=== PATIENT | male | born 1990 | race Caucasian/White ===

== ENCOUNTER 2024-05-16 08:36 | Emergency (ER) | payer OTHER, SELFPAY ==
--- NOTE | 2024-05-16 08:52 | ED.GENMED ---
History of Present Illness
General
Chief Complaint: Insect Sting
Source: patient
Exam Limitations: none
Time Seen by Provider: 05/16/24 08:47
Nursing documentation reviewed up to this point in time: agreed with
History of Present Illness
History of Present Illness:
34 yo male with no clinically significant PMHX presents shaky and tachypneic 20 minutes after stepping onto a hornets nest at [facility]. He's been stung numerous times on ankles, legs, head, ears, neck and right arm. Denies swelling of tongue or throat,
denies trouble breathing, denies chest pain, denies n/v/abd pain. May symptoms is pain and tight feeling in left ankle/calf where most of the stings are.
Past History
Past History
ED Past Medical History: Other (Former substance abuse)
ED Past Surgical History: None
Social History
Alcohol: Occasional
Drug: Former user (heroine)
Personal: Single
Living: with family
Employment: Employed ([employer])
Review of Systems
Review of Systems
Allergies reviewed?: Yes
All Other Systems: ROS reviewed and negative except as documented in HPI and ROS
EENT: Denies sore throat or mouth swelling
Respiratory: Denies trouble breathing
Cardiac: Denies chest pain
ABD/GI: Denies abdominal pain or nausea
Musculoskeletal: Reports no symptoms
Skin: Reports other (Numerous stings)
Neurological: Reports no symptoms
Phy Exam
Physical Exam
Physical Exam:
GENERAL: No acute distress. A&Ox3.
CONSTITUTIONAL: Afebrile.
EYES: clear, conjunctivae normal
ENMT: moist mucus membranes, Pharynx nl
RESPIRATORY: Regular respirations, tachypneic, nonlabored, lungs clear. Pulse ox 99% RA
CARDIOVASCULAR: Regular rate and rhythm, no murmurs, no rubs.
GI: Soft, nontender, normal BS
MUSCULOSKELETAL: Moves with ease. Well perfused.
SKIN: Warm, dry, pink. Numerous stings extremities, neck and head
PSYCH: Anxious mood and affect. Well kept, interactive and appropriate
NEUROLOGIC: Awake, alert and oriented. No focal neurological deficits
Course
Orders/Labs/Results
Orders:
Orders
05/16/24 08:51
IV Insert/Care/Rem.- Treatment PRN
0.9% Sodium Chloride 1000 ml [Nss] 1,000 ml IV BOLUS
Dexamethasone Sod Phosphate [Decadron] 10 mg IV NOW STA
Diphenhydramine [Benadryl] 50 mg IV NOW STA
05/16/24 08:52
Ketorolac [Toradol] 15 mg IV NOW STA
Vital Signs
Initial and Last Documented VS:
Initial Vital Signs
Pulse Resp Pulse Ox
94 28 99
05/16/24 08:44 05/16/24 08:44 05/16/24 08:44
Last Documented Vital Signs
Temp Pulse Resp BP Pulse Ox
98.2 F 88 20 134/68 99
05/16/24 10:01 05/16/24 10:01 05/16/24 10:01 05/16/24 10:01 05/16/24 10:01
MDM/Problems Addressed
Differential Diagnosis Includes:
insect stings, allergic reaction, anaphylaxis
MDM/Problems Addressed:
34 yo male with no clinically significant PMHX presents shaky and tachypneic 20 minutes after stepping onto a [place] nest at [facility]. He's been stung numerous times on ankles, legs, head, ears, neck and right arm. Denies swelling of tongue or throat,
denies trouble breathing, denies chest pain, denies n/v/abd pain. May symptoms is pain and tight feeling in left ankle/calf where most of the stings are.
Hemodynamically stable
Hyperventilating
10:00 AM:
In to re evaluate pt
Vital sign stable, patient is much more calm
No sign of significant allergy/anaphylaxis
*Critical Care Note
Total Time (30-74mins, 75-104mins- exclusive of procedures): Not Applicable
ED Attending Note
-
Portions of this chart may have been created with voice recognition software.� Occasional wrong word or��sound alike� substitutions may have occurred due to the inherent limitations of voice recognition software.
Discharge Plan
Departure
Patient Disposition: Home (Routine Discharge)
Date of Disposition: 05/16/24
Time of Disposition: 10:04
Patient with high blood pressure during this ER visit?: No
Condition: Good
Discharge Problem:
Bites and stings, insect
Instructions: Insect Bites and Stings (DC)
Prescriptions:
No Action
doxycycline hyclate 100 mg capsule
100 mg PO BID Qty: 14 0RF
Referrals:
UNKNOWN - PT DOES,NOT KNOW [Family Provider] -
Activity Restrictions/Additional Instructions:
As we discussed you may continue Benadryl 25-50 mg for itching, redness, swelling. It can make you sleepy and slow the reflexes so do not drive or operate any machinery within 8 hours of taking it.
Ibuprofen 600 mg, every 6 hours as needed for pain
Cool compress to stinging areas to help soothe the skin
Interventions
Interventions:
*Risk Screen - Suicide Last Done: 05/16/24 08:44
*General Assessment Last Done: 05/16/24 08:44
*Neglect/Abuse Screening Last Done: 05/16/24 08:44
ED- Fall Risk Assessment Last Done: 05/16/24 10:17
*ED COVID-19 Vaccine History Last Done: 05/16/24 10:17
*Nursing Disposition Last Done: 05/16/24 10:17
ED-Skin Assessment Last Done: 05/16/24 09:09
ED- Pulmonary Assessment Last Done: 05/16/24 09:09
Discharge Date and Time
Discharge Date/Time: 05/16/24 10:18
Print Language: [id number]
[2024-05-16] MEDS: BENADRYL 50 MG IV (08:55)
[2024-05-16] MEDS: DECADRON 10 MG IV (08:56)
[2024-05-16] MEDS: TORADOL 15 MG IV (08:56)
[2024-05-16] MEDS: NSS 1000 IV (08:57)
[2024-05-16 10:01] VITALS: BP 134/68
== END 2024-05-16 10:18 | disposition home or self-care (01) ==
LOC: EMR 08:36
PROVIDERS: EMERGENCY PHYSICIAN Emergency Medicine
DX: T63.451A Toxic effect of venom of hornets, accidental (unintentional), initial encounter (principal); R06.82 Tachypnea, not elsewhere classified; M25.572 Pain in left ankle and joints of left foot; M79.605 Pain in left leg; R06.4 Hyperventilation; X58.XXXA Exposure to other specified factors, initial encounter; Y92.512 Supermarket, store or market as the place of occurrence of the external cause; F19.11 Other psychoactive substance abuse, in remission
CPT/HCPCS: 99284; 96374; 96375 ×2; 96361